=== PATIENT | male | born 1980 | race Caucasian/White ===

== ENCOUNTER 2018-08-23 02:32 | Emergency (ER) | payer SELFPAY ==
--- NOTE | 2018-08-23 02:41 | EDM.PDOC ---
ED HPI GENERAL MEDICAL PROBLEM - General Chief Complaint: Eye Problems Stated Complaint: Foreign body left eye Time Seen by Provider: 08/23/18 02:38 Source of Information: Reports: Patient, RN, RN Notes Reviewed History Limitations: Reports: No Limitations - History of Present Illness INITIAL COMMENTS - FREE TEXT/NARRATIVE: Patient presents to the ED at [facility] complaining of left eye pain and burning. Patient states he was welding a cow gate yesterday and started to feel left eye irritation earlier today. He states his eye started burning about 1 1/ 2 hour ago. He states he feels "a gritty sensation" of the left eye. Patient denies any blurry or visual changes. No previous eye problems or surgeries. Onset Date: 08/22/18 - Related Data Allergies Allergy/AdvReac Type Severity Reaction Status Date / Time No Known Allergies Allergy Verified 08/23/18 02:39 ED ROS ENT - Review of Systems Review Of Systems: See Below Constitutional: Denies: Fever, Chills HEENT: Reports: Other (burning sensation of left eye). Denies: Eye Pain, Vision Change Skin: Reports: No Symptoms Neurological: Denies: Dizziness, Headache ED EXAM, ENT - Physical Exam Exam: See Below Exam Limited By: No Limitations General Appearance: Alert, No Apparent Distress Eye Exam: Bilateral Eye: EOMI, Normal Inspection, PERRL Neurological: Alert, Oriented Skin: Warm, Dry, Intact, Normal Color ED ENT PROCEDURES - Additional/Other Procedure(s) Other (Free Text) Procedure(s): Visual inspection of the left eye does not reveal any FB. After eye was stained , corneal abrasion observed. Rest of eye exam normal. Course - Orders/Labs/Meds Orders: Active Orders 24 hr Category Date Time Status Eye Irrigation [RC] ONETIME Care 08/23/18 02:56 Ordered Meds: Medications Discontinued Medications Generic Name Dose Route Start Last Admin Trade Name Freq PRN Reason Stop Dose Admin Fluorescein Sodium 1 mg 08/23/18 02:40 Ful-Jennifer EYELF 08/23/18 02:41 ONETIME ONE Tetracaine HCl 1 ml 08/23/18 02:39 Tetracaine 0.5% Steri-Unit Devora EYELF 08/23/18 02:40 ONETIME ONE Departure - Departure Time of Disposition: 03:04 Disposition: Home, Self-Care 01 Condition: Good Clinical Impression: Chemical burn of eye - Discharge Information *PRESCRIPTION DRUG MONITORING PROGRAM REVIEWED*: Not Applicable *COPY OF PRESCRIPTION DRUG MONITORING REPORT IN PATIENT ALLEY: Not Applicable Instructions: Chemical Burn of the Eyes, Adult Forms: ED Department Discharge Additional Instructions: 1. Stay well hydrated and rest 2. Use drops as prescribed for the entire coarse, even if symptoms are better 3. Do not rub or irritate the eyes, could make symptoms worse 4. See an eyeglass cutter is symptoms are not better by Saturday 5. Call us with any questions or concerns - My Orders Last 24 Hours: My Active Orders 08/23/18 02:56 Eye Irrigation [RC] ONETIME - Assessment/Plan Last 24 Hours: My Active Orders 08/23/18 02:56 Eye Irrigation [RC] ONETIME Assessment:: Chemical burn to left eye
[2018-08-23] MEDS: Tetracaine HCl/PF 0.5% 4 ML Bottle EYELF ONE (02:50)
[2018-08-23] MEDS: Fluorescein 1 MG Ophth Strip EYELF ONE (02:52)
[2018-08-23] MEDS: Take Home: Gentamicin 0.3% Ophth Soln 5 ML, 1 Bottle Pack EYELF ONE (03:35)
== END 2018-08-23 03:43 | disposition home or self-care (01) ==
LOC: VM.ED 02:32
DX: T65.91XA Toxic effect of unspecified substance, accidental (unintentional), initial encounter (principal); T26.62XA Corrosion of cornea and conjunctival sac, left eye, initial encounter; W89.8XXA Exposure to other man-made visible and ultraviolet light, initial encounter
CPT/HCPCS: 99283; 99283-GF; A9270-GY

== ENCOUNTER 2021-09-09 09:28 | Emergency (ER) | payer OTHER ==
--- NOTE | 2021-09-09 09:58 | EDM.PDOC ---
ED HPI GENERAL MEDICAL PROBLEM - General Chief Complaint: Laceration Stated Complaint: finger laceration Time Seen by Provider: 09/09/21 09:55 Source of Information: Reports: Patient - History of Present Illness INITIAL COMMENTS - FREE TEXT/NARRATIVE: Patient presents ER with a laceration to the left thumb approximately 20 minutes prior to arrival states he was cutting onions at the house he cut his self with a knife. He did wash with warm hot soapy water prior to arrival. Tetanus is up-to-date He denies any numbness tingling loss sensation loss of range of motion he has no other medical problems at this time. Duration: Minutes: Associated Symptoms: Reports: No Other Symptoms Finger-Thumb Pain Score (Numeric/FACES): 4 - Related Data Allergies Allergy/AdvReac Type Severity Reaction Status Date / Time No Known Allergies Allergy Verified 08/23/18 02:39 Past Medical History - Past Health History Medical/Surgical History: Denies Medical/Surgical History ED ROS GENERAL - Review of Systems Review Of Systems: See Below Constitutional: Reports: No Symptoms HEENT: Reports: No Symptoms Respiratory: Reports: No Symptoms Musculoskeletal: Reports: No Symptoms Skin: Reports: Other (Laceration to top of the thumb pad) Neurological: Reports: No Symptoms Hematologic/Lymphatic: Reports: No Symptoms Immunologic: Reports: No Symptoms ED EXAM, SKIN/RASH Exam: See Below Exam Limited By: No Limitations General Appearance: Alert, WD/WN, No Apparent Distress Extremities: Normal Inspection, Normal Range of Motion, Non-Tender, Normal Capillary Refill, Other (Exam to the left finger there is approximately half centimeter superficial flap laceration to the pad minimal active bleeding patient has normal flexion FDS FDP and extension he has normal opposition abduction and abduction equal soft touch sensation) Neurological: Alert, Oriented, CN II-XII Intact, Normal Cognition, Normal Gait, No Motor/Sensory Deficits Psychiatric: Normal Affect, Normal Mood Skin: Warm, Dry, Intact, Normal Color, No Rash Course - Vital Signs Text/Narrative:: Laceration was soaked with Hibiclens normal saline closed with Steri-Strips #2 and Dermabond patient is educated on signs symptoms of any type infection and what to watch for gives a verbal understanding Last Recorded V/S: Last Vital Signs Temp 37.0 C 09/09/21 09:54 Pulse Resp 18 09/09/21 09:54 BP Pulse Ox 98 09/09/21 09:54 Departure - Departure Time of Disposition: 09:55 Disposition: Home, Self-Care 01 Condition: Good Clinical Impression: Thumb laceration - Discharge Information *PRESCRIPTION DRUG MONITORING PROGRAM REVIEWED*: No *COPY OF PRESCRIPTION DRUG MONITORING REPORT IN PATIENT ALLEY: No Instructions: Laceration Care, Adult, [id number] Forms: ED Department Discharge Additional Instructions: Keep the area clean and dry watch for any signs or symptoms of infection such as redness pain discharge or drainage Return to emergency room if anything changes or gets worse follow-up with your primary care provider in the next 24 to 48 hours Sepsis Event Note (ED) - Evaluation Sepsis Screening Result: No Definite Risk - Focused Exam Vital Signs: Vital Signs Temp Resp Pulse Ox 09/09/21 09:54 37.0 C 18 98 - Problem List & Annotations (1) Thumb laceration SNOMED Code(s): 820731515 Code(s): S61.019A - LACERATION W/O FOREIGN BODY OF THMB W/O DAMAGE TO NAIL, INIT Status: Acute
== END 2021-09-09 10:00 | disposition home or self-care (01) ==
LOC: VM.ED 09:28
DX: S61.012A Laceration without foreign body of left thumb without damage to nail, initial encounter (principal); W26.0XXA Contact with knife, initial encounter; Y92.009 Unspecified place in unspecified non-institutional (private) residence as the place of occurrence of the external cause
CPT/HCPCS: 12001; 99282-25; 99283

== ENCOUNTER 2023-08-16 | Emergency (ER) | payer OTHER ==
[2023-08-16] MEDS ORDERED: Sodium Chloride 0.9% 10 ML Syringe FLUSH PRN (00:15)
[2023-08-16] MEDS: Ondansetron 4 MG/2 ML SDV IVPUSH ONE (00:30)
[2023-08-16] MEDS: Sodium Chloride 0.9% 1,000 ML IV ONE (00:30)
[2023-08-16] MEDS: Ketorolac 30 MG/ML SDV IVPUSH ONE (00:30)
[2023-08-16 00:42] LABS: BASOPHILS ABSOLUTE AUTO 0.1 x10^3/uL (0.0-0.2); BASOPHILS PERCENT AUTO 0.6 % (0.2-1.2); EOSINOPHILS ABSOLUTE AUTO 0.1 x10^3/uL (0.0-0.5); EOSINOPHILS PERCENT AUTO 1.5 % (0.0-4.0); HEMATOCRIT 39.9 % (40.0-52.0); HEMOGLOBIN 14.4 g/dL (14.0-18.0); IMMATURE GRAN ABSOLUTE AUTO 0.01 x10^3/uL (0.00-0.07); LYMPHOCYTES ABSOLUTE AUTO 2.1 x10^3/uL (1.0-4.8); LYMPHOCYTES PERCENT AUTO 22.9 % (25.0-50.0); MEAN CORPUSCULAR HEMOGLOBIN 30.7 pg (26.0-32.0); MEAN CORPUSCULAR HGB CONC 36.1 g/dL (32.0-36.0); MEAN CORPUSCULAR VOLUME 85.1 fL (78.0-93.0); MONOCYTES ABSOLUTE AUTO 0.9 x10^3/uL (0.0-0.8); MONOCYTES PERCENT AUTO 9.8 % (2.0-11.0); NEUTROPHILS PERCENT AUTO 65.1 % (50.0-80.0); PLATELET COUNT,PLT 268 x10^3/uL (130-400); RED BLOOD CELL COUNT 4.69 x10^6/uL (4.5-6.0); WHITE BLOOD CELL COUNT,WBC 9.2 x10^3/uL (4.0-10.0)
[2023-08-16 00:56] LABS: ALANINE AMINOTRANSFERASE,ALT 41 U/L (16-63); ALBUMIN 3.5 g/dL (3.4-5.0); ALKALINE PHOSPHATASE 95 U/L (46-116); ANION GAP 13.2 mmol/L (5-15); ASPARTATE AMNIOTRANSFERASE,AST 27 U/L (15-37); BILIRUBIN TOTAL 0.5 mg/dL (0.2-1.0); BLOOD UREA NITROGEN,BUN 10 mg/dL (7-18); CALCIUM 8.7 mg/dL (8.5-10.1); CARBON DIOXIDE,CO2 24 mmol/L (21-32); CHLORIDE,CL 104 mmol/L (98-107); CREATININE 0.9 mg/dL (0.70-1.30); ESTIMATED GFR 110 mL/min (>=60); GLUCOSE RANDOM 157 mg/dL (70-99); POTASSIUM,K 3.2 mmol/L (3.5-5.1); SODIUM,NA 138 mmol/L (136-145)
[2023-08-16 01:06] LABS: APPEARANCE,URINE CLEAR (CLEAR); BILIRUBIN,URINE NEGATIVE (NEGATIVE); COLOR,URINE YELLOW (YELLOW); GLUCOSE,URINE NEGATIVE (NEGATIVE); KETONES,URINE NEGATIVE (NEGATIVE); LEUKOCYTE ESTERASE,URINE NEGATIVE (NEGATIVE); NITRITE,URINE NEGATIVE (NEGATIVE); OCCULT BLOOD,URINE NEGATIVE (NEGATIVE); PROTEIN,URINE NEGATIVE (NEGATIVE); UROBILINOGEN,URINE 0.2 EU/dL (0.2)
[2023-08-16] MEDS: Tamsulosin 0.4 MG Cap.ER PO ONE (01:17)
== END 2023-08-16 01:25 | disposition home or self-care (01) ==
LOC: VM.ED
DX: R10.9 Unspecified abdominal pain (principal)
CPT/HCPCS: 74176; 80053; 81003; 85025; 96374; 96375; 99283; 99284; A9270; J1885; J2405; J7030

== ENCOUNTER 2023-08-19 18:36 | Emergency (ER) | payer OTHER ==
[2023-08-19] MEDS ORDERED: HYDROmorphone 1 MG/ML Syringe IVPUSH ONE (18:51)
[2023-08-19] MEDS ORDERED: Naloxone 0.4 MG/ML SDV IVPUSH PRN (18:51)
[2023-08-19 18:54] LABS: BASOPHILS ABSOLUTE AUTO 0.1 x10^3/uL (0.0-0.2); BASOPHILS PERCENT AUTO 0.5 % (0.2-1.2); EOSINOPHILS ABSOLUTE AUTO 0.2 x10^3/uL (0.0-0.5); HEMATOCRIT 40.2 % (40.0-52.0); IMMATURE GRAN ABSOLUTE AUTO 0.01 x10^3/uL (0.00-0.07); LYMPHOCYTES ABSOLUTE AUTO 2.2 x10^3/uL (1.0-4.8); LYMPHOCYTES PERCENT AUTO 21.6 % (25.0-50.0); MEAN CORPUSCULAR HGB CONC 34.8 g/dL (32.0-36.0); MEAN CORPUSCULAR VOLUME 86.1 fL (78.0-93.0); MONOCYTES PERCENT AUTO 9.8 % (2.0-11.0); NEUTROPHILS ABSOLUTE AUTO 6.6 x10^3/uL (1.8-7.7); PLATELET COUNT,PLT 272 x10^3/uL (130-400); RED BLOOD CELL COUNT 4.67 x10^6/uL (4.5-6.0); WHITE BLOOD CELL COUNT,WBC 10.1 x10^3/uL (4.0-10.0)
[2023-08-19 19:12] LABS: A/G RATIO 0.97; ALANINE AMINOTRANSFERASE,ALT 33 U/L (16-63); ALBUMIN 3.6 g/dL (3.4-5.0); ALKALINE PHOSPHATASE 99 U/L (46-116); ASPARTATE AMNIOTRANSFERASE,AST 26 U/L (15-37); BILIRUBIN TOTAL 0.5 mg/dL (0.2-1.0); BLOOD UREA NITROGEN,BUN 15 mg/dL (7-18); C-REACTIVE PROTEIN 2.09 mg/dL (<=0.30); CALCIUM 9.2 mg/dL (8.5-10.1); CARBON DIOXIDE,CO2 24 mmol/L (21-32); CHLORIDE,CL 105 mmol/L (98-107); CREATININE 1.2 mg/dL (0.70-1.30); GLUCOSE RANDOM 129 mg/dL (70-99); LIPASE 38 U/L (19-71); POTASSIUM,K 3.4 mmol/L (3.5-5.1); PROTEIN TOTAL,TP 7.3 g/dL (6.4-8.2); SODIUM,NA 141 mmol/L (136-145)
[2023-08-19 19:13] LABS: ANION GAP 15.4 mmol/L (5-15); ESTIMATED GFR 78 mL/min (>=60)
[2023-08-19 19:41] LABS: BILIRUBIN,URINE NEGATIVE (NEGATIVE); COLOR,URINE YELLOW (YELLOW); GLUCOSE,URINE NEGATIVE (NEGATIVE); KETONES,URINE TRACE mg/dL (NEGATIVE); LEUKOCYTE ESTERASE,URINE NEGATIVE (NEGATIVE); NITRITE,URINE NEGATIVE (NEGATIVE); OCCULT BLOOD,URINE NEGATIVE (NEGATIVE); PH,URINE 7.5 (5.0-8.0); PROTEIN,URINE NEGATIVE (NEGATIVE); UROBILINOGEN,URINE 0.2 EU/dL (0.2)
[2023-08-19 19:45] LABS: APPEARANCE,URINE SLIGHTLY CLOUDY (CLEAR)
[2023-08-19] MEDS ORDERED: Bisacodyl 5 MG Tab PO ONE (20:33)
== END 2023-08-19 20:59 | disposition home or self-care (01) ==
LOC: VM.ED 18:36
DX: K59.00 Constipation, unspecified (principal)
CPT/HCPCS: 74019; 80053; 81003; 83690; 85025; 86140; 96374; 99283; 99284-25; A9270-GY; J1170

== ENCOUNTER 2024-11-16 17:43 | Emergency (ER) | payer OTHER ==
[2024-11-16] MEDS ORDERED: Sodium Chloride 0.9% 10 ML Syringe FLUSH PRN (17:45)
[2024-11-16] MEDS: HYDROmorphone 1 MG/ML Syringe IVPUSH ONE ×5 (17:55→19:59)
[2024-11-16 17:59] LABS: BASOPHILS ABSOLUTE AUTO 0.1 x10^3/uL (0.0-0.2); BASOPHILS PERCENT AUTO 0.7 % (0.2-1.2); EOSINOPHILS ABSOLUTE AUTO 0.2 x10^3/uL (0.0-0.5); EOSINOPHILS PERCENT AUTO 1.4 % (0.0-4.0); HEMATOCRIT 42.9 % (40.0-52.0); IMMATURE GRAN ABSOLUTE AUTO 0.04 x10^3/uL (0.00-0.07); LYMPHOCYTES ABSOLUTE AUTO 3.9 x10^3/uL (1.0-4.8); LYMPHOCYTES PERCENT AUTO 34.6 % (25.0-50.0); MEAN CORPUSCULAR HEMOGLOBIN 30.6 pg (26.0-32.0); MEAN CORPUSCULAR VOLUME 87.6 fL (78.0-93.0); MONOCYTES ABSOLUTE AUTO 0.8 x10^3/uL (0.0-0.8); MONOCYTES PERCENT AUTO 7.2 % (2.0-11.0); NEUTROPHILS ABSOLUTE AUTO 6.4 x10^3/uL (1.8-7.7); NEUTROPHILS PERCENT AUTO 55.7 % (50.0-80.0); PLATELET COUNT,PLT 258 x10^3/uL (130-400); WHITE BLOOD CELL COUNT,WBC 11.4 x10^3/uL (4.0-10.0)
[2024-11-16 18:13] LABS: PTT,PARTIAL THROMBOPLSTIN TIME 26.9 SEC (21.9-33.8)
[2024-11-16 18:18] LABS: LACTIC ACID 1.7 mmol/L (0.4-2.0)
[2024-11-16 18:24] LABS: A/G RATIO 0.97; ALANINE AMINOTRANSFERASE,ALT 51 U/L (16-63); ALBUMIN 3.8 g/dL (3.4-5.0); ALKALINE PHOSPHATASE 106 U/L (46-116); ASPARTATE AMNIOTRANSFERASE,AST 34 U/L (15-37); BILIRUBIN TOTAL 0.4 mg/dL (0.2-1.0); BLOOD UREA NITROGEN,BUN 14 mg/dL (7-18); CALCIUM 9.3 mg/dL (8.5-10.1); CARBON DIOXIDE,CO2 30 mmol/L (21-32); CHLORIDE,CL 104 mmol/L (98-107); CREATININE 1.2 mg/dL (0.70-1.30); GLUCOSE RANDOM 116 mg/dL (70-99); LIPASE 54 U/L (19-71); POTASSIUM,K 3.4 mmol/L (3.5-5.1); PROTEIN TOTAL,TP 7.7 g/dL (6.4-8.2); SODIUM,NA 143 mmol/L (136-145); TSH ULTRASENSITIVE 3.174 uIU/mL (0.358-3.74)
[2024-11-16 18:25] LABS: ANION GAP 12.4 mmol/L (5-15); C-REACTIVE PROTEIN < 0.50 mg/dL (<=0.50); ESTIMATED GFR 77 mL/min (>=60)
[2024-11-16] MEDS ORDERED: Orphenadrine 60 MG/2 ML Inj IM ONE (18:29)
[2024-11-16] MEDS: Orphenadrine 60 MG/2 ML Inj IV ONE (18:36)
[2024-11-16] MEDS: Iopamidol 755 Mg/ML 100 ML Bottle IVPUSH ONE (18:50)
[2024-11-16] MEDS: Labetalol 20 MG/4 ML Syringe IVPUSH ONE ×4 (18:56→20:00)
[2024-11-16] MEDS ORDERED: Nitroprusside 50 MG in Dextrose 5% in Water 248 ML IV SCH ×2 (19:30)
[2024-11-16] MEDS: Nitroglycerin/D5W 25 MG/250 ML BOTTLE IV SCH (19:50)
== END 2024-11-16 20:00 | disposition short-term general hospital (02) ==
LOC: VM.ED 17:43
DX: I71.00 Dissection of unspecified site of aorta (principal)
CPT/HCPCS: 71045; 71275; 80053; 83605; 83690; 83735; 84443; 84484; 85025; 85610; 85730; 86140; 93005; 93010; 96374; 96375; 96376; 99284; 99285; J1171; J1920; J2305; J2360; Q9967